=== PATIENT | male | born 1940 | race Caucasian/White ===

== ENCOUNTER 2024-03-17 12:42 | Inpatient (IN) | payer OTHER ==
[~2024-03-17] VITALS: Ht 172.7 cm; Wt 53.3 kg
[2024-03-17 12:59] VITALS: BP 135/57
[2024-03-17 13:29] LABS: BASO % 0.2 % (0.0-1.0); EOS # 0.1 10*3/uL (0.0-0.4); EOS % 1.4 % (1.0-4.0); HEMATOCRIT 32.5 % (42.0-52.0); MEAN CELL VOLUME 106.2 fl (80.0-94.0); MEAN CORPUSCULAR HGB 34.3 pg (27.0-31.0); MEAN CORPUSCULAR HGB CONC 32.3 g/dl (33.0-37.0); MEAN PLATELET VOLUME 10.8 fl (9.6-12.3); MONO # 1.4 10*3/uL (0.1-1.0); MONO % 16.6 % (3.0-9.0); NEUT # 3.7 10*3/uL (2.3-7.9); NEUT % 42.6 % (47.0-73.0); PLATELET COUNT AUTOMATED 413 10*3/uL (130-400); RED BLOOD COUNT 3.06 10*6/uL (4.50-5.90); WHITE BLOOD COUNT 8.7 10*3/uL (4.8-10.8)
[2024-03-17 13:55] LABS: BUN 24 mg/dl (9-23); CHLORIDE 107 mmol/L (98-107)
[2024-03-17 15:55] LABS: BILIRUBIN Negative (Negative); BLOOD 1+ (Negative); CLARITY Clear (Clear); COLOR Yellow (Yellow); GLUCOSE Negative (Negative); KETONE Negative (Negative); LEUKO ESTERASE 1+ (Negative); NITRITE Positive (Negative); PH 5.5 (4.5-8.0); UROBILINOGEN 0.2 E.U./dl (0.0-1.0)
[2024-03-17 16:02] LABS: BACTERIA 3+; WBC 21-30 wbc/hpf (0-5)
[2024-03-17 16:04] LABS: URINE AMPHETAMINES Negative (1000ng/ml); URINE BARBITURATES Negative (200ng/ml); URINE BENZODIAZEPINES Negative (200ng/ml); URINE CANNABINOIDS (THC) Negative (50ng/ml); URINE COCAINE Negative (300ng/ml); URINE METHADONE Negative (300ng/ml); URINE OPIATES Negative (300ng/ml); URINE PHENCYCLIDINE Negative (25ng/ml)
[2024-03-17] MEDS ORDERED: Amoxicillin/Clavulanate Pota 875 MG TAB PO ONE (16:15)
[2024-03-17 19:15] VITALS: BP 180/65
[2024-03-17 20:00] VITALS: BP 180/60
[2024-03-17] MEDS ORDERED: LORazepam 1 MG TAB PO PRN (22:20)
[2024-03-17] MEDS ORDERED: Ziprasidone Mesylate 20 MG VIAL IM PRN (22:20)
[2024-03-17] MEDS ORDERED: Magnesium Hydroxide 30 ML UDC PO PRN (22:25)
[2024-03-17] MEDS ORDERED: Water, Sterile 10 ML VIAL IM PRN (22:25)
[2024-03-18 06:26] LABS: BASO % 0.3 % (0.0-1.0); EOS # 0.2 10*3/uL (0.0-0.4); EOS % 3.3 % (1.0-4.0); HEMATOCRIT 29.9 % (42.0-52.0); MEAN CELL VOLUME 103.5 fl (80.0-94.0); MEAN CORPUSCULAR HGB 34.3 pg (27.0-31.0); MEAN CORPUSCULAR HGB CONC 33.1 g/dl (33.0-37.0); MEAN PLATELET VOLUME 10.6 fl (9.6-12.3); MONO # 1.3 10*3/uL (0.1-1.0); MONO % 19.2 % (3.0-9.0); NEUT # 2.8 10*3/uL (2.3-7.9); NEUT % 41.3 % (47.0-73.0); PLATELET COUNT AUTOMATED 342 10*3/uL (130-400); RED BLOOD COUNT 2.89 10*6/uL (4.50-5.90); RED CELL DISTRI WIDTH 18.7 % (0-14.5); WHITE BLOOD COUNT 6.7 10*3/uL (4.8-10.8)
[2024-03-18 07:49] LABS: ALKALINE PHOSPHATASE 91 U/L (46-116); BUN 21 mg/dl (9-23); CHLORIDE 108 mmol/L (98-107); CHOLESTEROL 139 mg/dL (<200); LDL CHOLESTEROL 83 mg/dL (9-159); POTASSIUM 4.6 mmol/L (3.4-5.1); SGPT/ALT 10 U/L (5-49); TRIGLYCERIDES 73 mg/dl (<150)
[2024-03-18 07:59] VITALS: BP 136/48
[2024-03-18 08:04] LABS: VITAMIN D, 25-HYDROXY 26.9 ng/mL (30-100)
[2024-03-18] MEDS ORDERED: Memantine Hydrochloride 5 MG TAB PO SCH (09:00)
[2024-03-18] MEDS ORDERED: Amoxicillin/Clavulanate Pota 875 MG TAB PO SCH (09:00)
[2024-03-18] MEDS ORDERED: DIVALPROEX (DR) 250 MG TAB PO SCH (09:00)
[2024-03-18] MEDS ORDERED: Rivastigmine Tartrate 1.5 MG CAP PO SCH (09:00)
[2024-03-18] MEDS ORDERED: Vitamin D 1,000 IU TAB (25 MCG) PO SCH (09:40)
[2024-03-18 20:00] VITALS: BP 128/44
[2024-03-19 08:00] VITALS: BP 139/49
[2024-03-19] MEDS ORDERED: Rivastigmine Tartrate 4.6 MG/24 HR PATCH T SCH (09:00)
[2024-03-19 20:00] VITALS: BP 183/55
[2024-03-19] MEDS ORDERED: Memantine Hydrochloride 5 MG TAB PO SCH (21:00)
[2024-03-19] MEDS ORDERED: CEFDINIR 300 MG CAP PO SCH (21:00)
[2024-03-20 08:00] VITALS: BP 130/35
[2024-03-20] MEDS ORDERED: CITALOPRAM 20 MG TAB PO SCH (11:25)
[2024-03-20 20:00] VITALS: BP 160/71
[2024-03-21 08:25] VITALS: BP 124/43
[2024-03-21] MEDS ORDERED: Rivastigmine Tartrate 9.5 MG/24 HR PATCH T SCH (09:00)
[2024-03-21] MEDS ORDERED: Memantine Hydrochloride 5 MG TAB PO SCH (09:00)
[2024-03-21 20:00] VITALS: BP 160/51
[2024-03-21 21:00] VITALS: BP 140/60
[2024-03-21] MEDS ORDERED: Memantine Hydrochloride 10 MG TAB PO SCH (21:00)
[2024-03-22 07:40] VITALS: BP 129/41
[2024-03-22 20:00] VITALS: BP 158/53
[2024-03-22] MEDS ORDERED: Memantine Hydrochloride 10 MG TAB PO SCH (21:00)
[2024-03-23 07:59] VITALS: BP 141/56
[2024-03-23] MEDS ORDERED: RIVASTIGMINE 13.3 MG/24 HR TDM T SCH (09:00)
[2024-03-23 20:00] VITALS: BP 152/54
[2024-03-24 08:09] VITALS: BP 148/98
[2024-03-24] MEDS ORDERED: ACETAMINOPHEN 325 MG TAB PO PRN (18:30)
[2024-03-24 20:00] VITALS: BP 132/62
[2024-03-25 07:54] VITALS: BP 124/41
[2024-03-25] MEDS ORDERED: LORazepam 1 MG TAB PO PRN (11:35)
[2024-03-25 19:10] VITALS: BP 144/80
[2024-03-26] MEDS ORDERED: hydrOXYzine pamoate 25 MG CAP PO PRN (09:25)
[2024-03-26 20:00] VITALS: BP 116/35
[2024-03-27 08:00] VITALS: BP 147/84
[2024-03-27 20:00] VITALS: BP 155/54
[2024-03-28] MEDS ORDERED: CITALOPRAM20 MG PO (06:50)
[2024-03-28] MEDS ORDERED: MEMANTINE HCL10 MG PO (06:50)
[2024-03-28] MEDS ORDERED: DIVALPROEX SOD250 MG PO (06:50)
[2024-03-28] MEDS ORDERED: RIVASTIGMINE1 EAC2 T (06:50)
[2024-03-28 08:00] VITALS: BP 134/52
== END 2024-03-28 09:57 | disposition home or self-care (01) | DRG 883 ==
LOC: ED 12:42 → EDHOLD 16:53 → 3N 16:53
PROVIDERS: Emergency Medicine; ADMIT Psychiatry & Neurology Psychiatry; ATTEND Psychiatry & Neurology Psychiatry
PROC: GZHZZZZ Group Psychotherapy (ICD-10-PCS; principal; 2024-03-18)
PROC: GZ51ZZZ Individual Psychotherapy, Behavioral (ICD-10-PCS; 2024-03-18)
DX: F63.81 Intermittent explosive disorder (principal); N18.9 Chronic kidney disease, unspecified; N39.0 Urinary tract infection, site not specified; D53.9 Nutritional anemia, unspecified; R73.9 Hyperglycemia, unspecified; B96.20 Unspecified Escherichia coli [E. coli] as the cause of diseases classified elsewhere; F32.9 Major depressive disorder, single episode, unspecified; Z20.822 Contact with and (suspected) exposure to COVID-19